=== PATIENT | male | born 1950 | race Caucasian/White ===

== ENCOUNTER 2022-11-24 06:20 | Day surgery (SDC) | payer OTHER ==
[2022-11-24] MEDS: Ringers Lactate 1,000 ML IV ONE (06:40)
[2022-11-24] MEDS ORDERED: LIDOCAINE 1% MPF 5 ML VIAL ONE (08:12)
[2022-11-24] MEDS ORDERED: propofoL 200 MG/20 ML VIAL IV ONE (08:12)
[2022-11-24 08:55] VITALS: TEMP 98.2
[2022-11-24 09:09] VITALS: BP 133/83; O2SAT 97
== END 2022-11-24 09:11 | disposition home or self-care (01) ==
LOC: OR 06:20
PROVIDERS: ATTEND Internal Medicine Gastroenterology
PROC: 0DBK8ZX Excision of Ascending Colon, Via Natural or Artificial Opening Endoscopic, Diagnostic (ICD-10-PCS; principal; 2022-11-24 07:30)
DX: Z86.010 Personal history of colon polyps (principal); Z83.71 Family history of colonic polyps; Z80.0 Family history of malignant neoplasm of digestive organs; K57.30 Diverticulosis of large intestine without perforation or abscess without bleeding; K64.8 Other hemorrhoids; K64.4 Residual hemorrhoidal skin tags; D17.5 Benign lipomatous neoplasm of intra-abdominal organs; K63.5 Polyp of colon; F17.210 Nicotine dependence, cigarettes, uncomplicated
CPT/HCPCS: 88305; 45380; J2704; J2001; J7120

== ENCOUNTER → 2023-10-10 | Emergency (ER) | payer OTHER ==
[~2023-10-10] MED LIST: CODEINE 30MG/APAP 300MG TAB ONE; MORPHINE 2 MG/ML SYR ONE; MORPHINE 4 MG/ML SYR ONE
--- NOTE | 2023-10-10 20:53 | RAD REPORT ---
EXAM DESCRIPTION: RAD - Shoulder Right 2 View - 10/10/2023 8:44 pm CLINICAL HISTORY: fall;Pain COMPARISON: <Comparisons> FINDINGS: Fracture of the proximal right humerus is seen with significant displacement. Examination is limited as positioning is nonanatomic.
--- NOTE | 2023-10-10 21:24 | EDPHYS ---
Physician Documentation [facility] Name: Ej Og Sr Age: 73 yrs Sex: Male : 1950 Arrival Date: 10/10/2023 Time: 19:11 Bed IW1 Private MD: ED Physician Ole Bradshaw HPI: 10/10 19:45 This 73 yrs old Male presents to ER via Ambulatory with complaints of Shoulder Injury, cp Shoulder Pain. 19:45 The patient or guardian complains of decreased range of motion, deformity, an injury, cp pain, that is acute. right shoulder. Context: resulted from a fall, while walking, The patient experiences decreased range of motion, when rotates arm, The patient notes a deformity, an anterior fullness. Onset: The symptoms/episode began/occurred just prior to arrival. Associated signs and symptoms: Pertinent negatives: abdominal pain, chest pain, neck pain, Numbness in right hand and right arm. Treatment prior to arrival includes: no previous treatment. Patient reports slip and fall on ice causing him to strike right shoulder on concrete. Denies hitting head, denies syncope and/or LOC. Historical: - Allergies: 19:22 ANTIHISTAMINES; cm10 - PMHx: 19:22 Enlarged Prostate; cm10 - Immunization history:: Adult Immunizations up to date. - Social history:: Smoking status: Patient reports the use of cigarette tobacco products, smokes 0.75 packs per day. ROS: 19:50 Constitutional: Negative for body aches, chills, fever, poor PO intake, cp 19:50 Eyes: Negative for injury, pain, redness, and discharge, cp 19:50 Neck: Negative for pain with movement, pain at rest, stiffness, 19:50 Cardiovascular: Negative for chest pain, palpitations, 19:50 Respiratory: Negative for cough, shortness of breath, wheezing, 19:50 Abdomen/GI: Negative for abdominal pain, vomiting, diarrhea, constipation, 19:50 Back: Negative for pain at rest, pain with movement, 19:50 MS/extremity: Positive for decreased range of motion, deformity, pain, tenderness, of the right shoulder, Negative for paresthesias, 19:50 Neuro: Negative for altered mental status, headache, loss of consciousness, numbness, syncope, weakness, 19:50 All other systems are negative, Exam: 19:55 Constitutional: The patient appears in no acute distress, alert, awake, cp non-diaphoretic, well developed, well nourished, uncomfortable, 19:55 Head/Face: Normocephalic, atraumatic. cp 19:55 Neck: C-spine: vertebral tenderness, is not appreciated, crepitus, is not appreciated, ROM/movement: is normal, is supple, without pain, no range of motions limitations, 19:55 Chest/axilla: Inspection: normal, Palpation: is normal, no crepitus, no tenderness, 19:55 Cardiovascular: Rate: normal, 19:55 Respiratory: the patient does not display signs of respiratory distress, Respirations: normal, no use of accessory muscles, no retractions, labored breathing, is not present, Breath sounds: are clear throughout, no decreased breath sounds, no stridor, no wheezing, 19:55 Abdomen/GI: Inspection: abdomen appears normal, Palpation: abdomen is soft and non-tender, in all quadrants, 19:55 Back: pain, is absent, ROM is normal, vertebral tenderness, is not appreciated, 19:55 Musculoskeletal/extremity: Extremities: noted in the right shoulder: mild anterior fullness, marked pain, decreased AROM, pain with passive ROM, strong right radial pulse, good wool brusher strength , Vital Signs: 19:24 BP 161 / 89; Pulse 82; Resp 18; Temp 98.3; Pulse Ox 98% on R/A; Weight 80.74 kg; Height cm10 6 ft. 0 in. ; Pain 6/10; 19:24 Body Mass Index 24.14 (80.74 kg, 182.88 cm) cm10 19:24 Pain Scale: Adult cm10 MDM: 19:28 Patient medically screened. cp 21:23 Data reviewed: vital signs, nurses notes, radiologic studies, plain films. cp 21:23 Differential diagnosis: Anterior dislocation with fracture, Anterior dislocation cp without fracture, Posterior dislocation with fracture, Posterior dislocation without fracture, humeral head fracture. I considered the following discharge prescriptions or medication management in the emergency department Medications were administered in the Emergency Department. See MAR. Independent interpretation of the following test(s) in the Emergency Department X-Ray: My interpretation is images of right shoulder show fracture of right humerus below humeral head. Counseling: I had a detailed discussion with the patient and/or guardian regarding the historical points, exam findings, and any diagnostic results supporting the discharge/admit diagnosis, radiology results, the need for outpatient follow up, for definitive care, a orthopedic surgeon, to return to the emergency department if symptoms worsen or persist or if there are any questions or concerns that arise at home. Response to treatment: improved, and as a result, I will discharge patient. 10/10 19:29 Order name: XRAY Shoulder RIGHT 2 view; Complete Time: 21:02 cp 10/10 21:03 Interpretation: Reviewed. cp 10/10 19:32 Order name: Sling; Complete Time: 19:32 cm10 Administered Medications: 21:03 CANCELLED (Physician Discretion): morphine6 mg IM once cp 21:05 Drug: Acetaminophen-Codeine PO (300 mg-30 mg) 2 tabs PO once; RASS on ADMIN: Combtv4, cm10 Very Agttd3, Agttd2, Rstlss1, AlertClm0, Drwsy-1, Lt Sdtn-2, Mod Sdtn-3, Dp Sdtn-4, UnArsble-5 Route: PO; 21:42 Follow up: Response: No adverse reaction cm10 Disposition: 10/11 17:25 Co-signature as Attending Physician, Ole Bradshaw MD I reviewed the patient's care rt provided by the Advanced Practice Provider and agree with the diagnosis and treatment plan. Disposition Summary: 10/10/23 21:24 Discharge Ordered Notes: Location: Home cp Problem: new cp Symptoms: have improved cp Condition: Stable cp Diagnosis - 2-part displaced fracture of surgical neck of right humerus cp Followup: cp - With: Jose Elias Barboza MD - When: 2 - 3 days - Reason: right proximal humerus fracture Discharge Instructions: - Discharge Summary Sheet cp - Humerus Fracture Treated With Immobilization cp Forms: - Medication Reconciliation Form cp - Thank You Letter cp - Antibiotic Education cp - Prescription Opioid Use cp - Patient Portal Instructions cp - Leadership Thank You Letter cp Prescriptions: - acetaminophen-codeine 300-30 mg Oral tablet - take 2 tablet ORAL route every 8 hours as needed for pain; 20 tablet; Refills: cp 0, Product Selection Permitted - Ibuprofen 800 mg Oral Tablet - take 1 tablet ORAL route every 8 hours As needed take with food; 30 tablet; cp Refills: 0, Product Selection Permitted Signatures: Dispatcher MedHoSang Vickers PA PA cp Ole Bradshaw MD MD rt Bernadette Ross RN RN cm10 Corrections: (The following items were deleted from the chart) 10/10 21:03 20:49 morphine IM 6 mg IM once ordered. cp cp
--- NOTE | 2023-10-10 21:24 | ER ---
Nurse's Notes [facility] Name: Ej Og Sr Age: 73 yrs Sex: Male : 1950 Arrival Date: 10/10/2023 Time: 19:11 Bed IW1 Private MD: Diagnosis: 2-part displaced fracture of surgical neck of right humerus Presentation: 10/10 19:24 Chief complaint: Patient states: Right shoulder pain s/p slipping and falling on porch. cm10 Pt denies hitting head, no LOC. Coronavirus screen: Vaccine status: Patient reports being unvaccinated. Client denies travel out of the [place] in the last 14 days. Ebola Screen: Patient denies travel to an Ebola-affected area in the 21 days before illness onset. No symptoms or risks identified at this time. Initial Sepsis Screen: Does the patient meet any 2 criteria? No. Patient's initial sepsis screen is negative. Does the patient have a suspected source of infection? No. Patient's initial sepsis screen is negative. Risk Assessment: Do you want to hurt yourself or someone else? Patient reports no desire to harm self or others. Onset of symptoms was October 10, 2023. 19:24 Method Of Arrival: Ambulatory cm10 19:24 Acuity: LEIGH ANN 4 cm10 Triage Assessment: 19:25 General: Appears in no apparent distress. comfortable, Behavior is calm, cooperative. cm10 Pain: Complains of pain in Right shoulder. EENT: No deficits noted. No signs and/or symptoms were reported regarding the EENT system. Neuro: No deficits noted. Level of Consciousness is awake, alert, Oriented to person, place, time, situation. Respiratory: No deficits noted. Airway is patent Respiratory effort is even, unlabored, Respiratory pattern is regular, symmetrical. GI: No deficits noted. No signs and/or symptoms were reported involving the gastrointestinal system. : No deficits noted. No signs and/or symptoms were reported regarding the genitourinary system. Derm: No deficits noted. No signs and/or symptoms reported regarding the dermatologic system. Skin is intact, Skin is pink, warm \T\ dry. Musculoskeletal: No deficits noted. Reports pain in Right shoulder. Injury Description: Fall. Historical: - Allergies: 19:22 ANTIHISTAMINES; cm10 - PMHx: 19:22 Enlarged Prostate; cm10 - Immunization history:: Adult Immunizations up to date. - Social history:: Smoking status: Patient reports the use of cigarette tobacco products, smokes 0.75 packs per day. Screenin:26 [facility] ED Fall Risk Assessment (Adult) History of falling in the last 3 months, cm10 including since admission Yes- single mechanical fall (1 pt) Confusion or Disorientation No (0 pts) Intoxicated or Sedated No (0 pts) Impaired Gait No (0 pts) Mobility Assist Device Used No (0 pt) Altered Elimination No (0 pt) Score/Fall Risk Level 0 - 2 = Low Risk Oriented to surroundings, Maintained a safe environment, Hourly rounding (assess needs \T\ fall precautionary measures) done. Abuse screen: Denies threats or abuse. Denies injuries from another. Nutritional screening: No deficits noted. Tuberculosis screening: No symptoms or risk factors identified. Vital Signs: 19:24 BP 161 / 89; Pulse 82; Resp 18; Temp 98.3; Pulse Ox 98% on R/A; Weight 80.74 kg; Height cm10 6 ft. 0 in. ; Pain 6/10; 19:24 Body Mass Index 24.14 (80.74 kg, 182.88 cm) cm10 19:24 Pain Scale: Adult cm10 ED Course: 19:18 Patient arrived in ED. gm2 19:25 Triage completed. cm10 19:25 Sang Akhtar PA is PHCP. cp 19:25 Ole Bradshaw MD is Attending Physician. cp 19:26 Arm band placed on Patient placed in waiting room. cm10 19:26 Patient has correct armband on for positive identification. Provided Education on: ER cm10 process and procedures. 19:32 Sling applied to right arm. cm10 20:45 XRAY Shoulder RIGHT 2 view In Process Unspecified. EDMS 21:23 Jose Elias Barboza MD is Referral Physician. cp 21:42 No provider procedures requiring assistance completed. Patient did not have IV access cm10 during this emergency room visit. Administered Medications: 21:03 CANCELLED (Physician Discretion): morphine6 mg IM once cp 21:05 Drug: Acetaminophen-Codeine PO (300 mg-30 mg) 2 tabs PO once; RASS on ADMIN: Combtv4, cm10 Very Agttd3, Agttd2, Rstlss1, AlertClm0, Drwsy-1, Lt Sdtn-2, Mod Sdtn-3, Dp Sdtn-4, UnArsble-5 Route: PO; 21:42 Follow up: Response: No adverse reaction cm10 Medication: 19:26 VIS not applicable for this client. cm10 Outcome: 21:24 Discharge ordered by . cp 21:42 Discharged to home ambulatory, with family, cm10 21:42 Condition: good 21:42 Discharge instructions given to patient, Instructed on discharge instructions, follow up and referral plans. medication usage, Demonstrated understanding of instructions, follow-up care, medications, Prescriptions given X 2, 21:46 Patient left the ED. cm10 Signatures: Dispatcher [employer] EDMS Sang Akhtar PA PA cp Martinez, Clarissa, RN RN cm10 Patsy Ordoñez gm2
[2023-10-10 22:58] VITALS: BP 161/89; TEMP 98.3; O2SAT 98
== END ==
LOC: ER 19:11
DX: S42.221A 2-part displaced fracture of surgical neck of right humerus, initial encounter for closed fracture (principal); Z88.8 Allergy status to other drugs, medicaments and biological substances
CPT/HCPCS: 99283; J2270

== ENCOUNTER → 2023-11-10 | Emergency (ER) | payer OTHER ==
[~2023-11-10] MED LIST changes: -CODEINE 30MG/APAP 300MG TAB ONE; -MORPHINE 2 MG/ML SYR ONE; -MORPHINE 4 MG/ML SYR ONE; +NA CHLORIDE 0.9% 1,000 ML ONE
[2023-11-10 14:53] LABS: Absolute Lymphocytes (CBC) 1.4 K/uL (0.7-4.9); Hematocrit 42.8 % (39.6-49.0); Lymphocytes % 24.8 % (15.3-44.8); MCV 92.7 fL (80-100); MPV 6.7 fL (7.6-11.3); Platelets 253 thou/uL (152-406); RBC Red Blood Cell Count 4.62 M/uL (4.33-5.43)
--- NOTE | 2023-11-10 15:09 | RAD REPORT ---
EXAM DESCRIPTION: RAD - Chest Single View - 11/10/2023 3:00 pm CLINICAL HISTORY: syncope Chest pain. COMPARISON: <Comparisons> FINDINGS: Portable technique limits examination quality. The lungs are emphysematous but grossly clear. The heart is normal in size. No displaced fractures. IMPRESSION: No acute intrathoracic process suspected. Mild COPD.
[2023-11-10 15:14] LABS: Albumin 3.5 g/dL (3.4-5.0); Bilirubin Total 0.6 mg/dL (0.2-1.0); Potassium 3.3 mEq/L (3.5-5.1); Protein, Total 6.5 g/dL (6.4-8.2); Troponin High Sensitivity 7.9 pg/mL (<58.9)
--- NOTE | 2023-11-10 15:47 | ER ---
Nurse's Notes [facility] Name: Ej Og Sr Age: 73 yrs Sex: Male : 1950 Arrival Date: 11/10/2023 Time: 14:24 Bed 17 Private MD: Diagnosis: Syncope Near Presentation: 11/10 14:29 Chief complaint: EMS states: He was getting out of his car became dizzy and fainted. Pt rs5 does not remember anything. Syncopal episode witnessed by son who said he might've hit his head. Coronavirus screen: At this time, the client does not indicate any symptoms associated with coronavirus-19. Ebola Screen: No symptoms or risks identified at this time. Initial Sepsis Screen: Does the patient meet any 2 criteria? No. Patient's initial sepsis screen is negative. Does the patient have a suspected source of infection? No. Patient's initial sepsis screen is negative. Risk Assessment: Do you want to hurt yourself or someone else? Patient reports no desire to harm self or others. Onset of symptoms was November 10, 2023. Care prior to arrival: IV initiated. 20 GA, in the left forearm. 14:29 Method Of Arrival: EMS: [facility] rs5 14:29 Acuity: LEIGH ANN 3 rs5 Historical: - Allergies: 14:32 ANTIHISTAMINES; rs5 14:32 STATINS HMG COA REDUCTASE INHIBITORS; rs5 - PMHx: 14:32 enlarged prostate; rs5 - PSHx: 14:32 None; rs5 - Immunization history:: Adult Immunizations unknown. - Social history:: Smoking status: unknown. Screenin:30 [facility] ED Fall Risk Assessment (Adult) History of falling in the last 3 months, me1 including since admission Yes- single mechanical fall (1 pt) Confusion or Disorientation No (0 pts) Intoxicated or Sedated No (0 pts) Impaired Gait No (0 pts) Mobility Assist Device Used No (0 pt) Altered Elimination No (0 pt) Score/Fall Risk Level 0 - 2 = Low Risk Maintained a safe environment, Provided non-skid footwear, Hourly rounding (assess needs \T\ fall precautionary measures) done. Abuse screen: Denies threats or abuse. Nutritional screening: No deficits noted. Tuberculosis screening: No symptoms or risk factors identified. Assessment: 14:30 General: Appears comfortable, well groomed, well developed, well nourished, Behavior is me1 calm, cooperative, appropriate for age. Pain: Denies pain. Neuro: Level of Consciousness is awake, alert, obeys commands, Oriented to person, place, time, situation, Appropriate for age. Cardiovascular: Capillary refill < 3 seconds Patient's skin is warm and dry. Respiratory: Airway is patent Trachea midline Respiratory effort is even, unlabored, Respiratory pattern is regular, symmetrical. Vital Signs: 14:29 BP 151 / 86; Pulse 77; Resp 18; Pulse Ox 99% on R/A; rs5 14:30 BP 158 / 76; Pulse 61; Resp 16; Pulse Ox 98% on R/A; me1 15:00 BP 163 / 83; Pulse 59; Resp 20; Pulse Ox 100% on R/A; me1 ED Course: 14:29 Patient arrived in ED. rs5 14:30 Patient has correct armband on for positive identification. Bed in low position. Call me1 light in reach. Side rails up X2. Provided Education on: POC. Verbalized understanding. . 14:30 Arm band placed on Patient placed in an exam room. me1 14:30 No provider procedures requiring assistance completed. me1 14:31 Ariel Karimi MD is Attending Physician. ec2 14:32 Triage completed. rs5 15:02 CXR XRAY In Process Unspecified. EDMS 16:11 Ani Fu, RAFA is Primary Nurse. me1 16:15 IV discontinued, intact, bleeding controlled, No redness/swelling at site. Pressure me1 dressing applied. Administered Medications: 14:54 Drug: NS 0.9% IV 1000 ml IV at 1 bolus Per protocol; 1000 mL bolus Route: IV; Rate: 1 rs5 bolus; Site: left forearm; 16:13 Follow up: IV Status: Completed infusion; IV Intake: 1000ml me1 Medication: 14:30 VIS not applicable for this client. me1 Intake: 16:13 IV: 1000ml; Total: 1000ml. me1 Outcome: 15:47 Discharge ordered by . ec2 16:15 Discharged to home ambulatory, with family, me1 16:15 Condition: stable 16:15 Discharge instructions given to patient, family, Instructed on discharge instructions, follow up and referral plans. Demonstrated understanding of instructions, follow-up care, 16:16 Patient left the ED. me1 Signatures: Dispatcher [employer] Evangelista Mora RN RN rs5 Ani Fu RN RN me1 Ariel Karimi MD MD ec2 Corrections: (The following items were deleted from the chart) 16:11 14:29 Chief complaint: EMS states: He was getting out of his car became dizzy and me1 fainted. Pt does not remember anything. Syncopal episode witnessed by son who said he might've hit his head rs5 16:15 14:30 Patient did not have IV access during this emergency room visit. me1 me1
--- NOTE | 2023-11-10 15:48 | EDPHYS ---
Physician Documentation [facility] Name: Ej Og Sr Age: 73 yrs Sex: Male : 1950 Arrival Date: 11/10/2023 Time: 14:24 Bed 17 Private MD: ED Physician Ariel Karimi HPI: 11/10 14:31 This 73 yrs old Male presents to ER via Unassigned with complaints of syncope.ec2 14:31 Patient arrives today for evaluation of a syncopal episode. States that he was getting ec2 off his car, felt lightheaded and subsequently passed out. States that he has had bouts of dizziness which she has been evaluated for in the past by neurology with no acute process identified. Patient reports normal state of health, no vomiting, no diarrhea, no cough or cold symptoms, no fevers or chills. Patient reports normal hydration status.. Historical: - Allergies: 14:32 ANTIHISTAMINES; rs5 14:32 STATINS HMG COA REDUCTASE INHIBITORS; rs5 - PMHx: 14:32 enlarged prostate; rs5 - PSHx: 14:32 None; rs5 - Immunization history:: Adult Immunizations unknown. - Social history:: Smoking status: unknown. ROS: 14:31 Constitutional: as per hpi ec2 Exam: 14:31 Constitutional: GEN: NAD Head: atraumatic Eyes: EOMI Ears: External ears are ec2 normal. CV: regular rate LUNGS: no respiratory distress ABD: non-distended, soft, nontender, no guarding, not rigid SKIN: no evidence of rashes MSK: no evidence of trauma, no C/T/L-spine TTP NEURO: moves all extremities equally, cranial nerves II through XII intact, strength intact all 4 extremities. Vital Signs: 14:29 BP 151 / 86; Pulse 77; Resp 18; Pulse Ox 99% on R/A; rs5 14:30 BP 158 / 76; Pulse 61; Resp 16; Pulse Ox 98% on R/A; me1 15:00 BP 163 / 83; Pulse 59; Resp 20; Pulse Ox 100% on R/A; me1 MDM: 14:31 Patient medically screened. ec2 14:31 Data reviewed: vital signs. ED course: Patient arrives today for evaluation of syncopal ec2 episode. Examination remarkable for well-appearing nontoxic dividual is otherwise in no acute distress. Will obtain lab work, EKG, chest x-ray and reassess patient. Currently considering process such as arrhythmia, electrolyte disturbances, dehydration, anemia.. 15:42 ED course: CBC reassuring, metabolic profile with slight hypokalemia noted, slightly ec2 diminished GFR 74, troponin within normal ranges, chest x-ray with no acute intrathoracic process. On reassessment patient remains well-appearing in no acute distress. Will discharge home. Return precautions given. Low suspicion for PE or dissection, patient otherwise without chest pain to suggest ACS. . 11/10 14:31 Order name: CBC with Diff; Complete Time: 15:41 ec2 11/10 14:31 Order name: CMP; Complete Time: 15:41 ec2 11/10 14:31 Order name: Troponin HS; Complete Time: 15:41 ec2 11/10 14:31 Order name: CXR XRAY; Complete Time: 15:41 ec2 11/10 14:31 Order name: EKG - Nurse/Tech; Complete Time: 14:55 ec2 Administered Medications: 14:54 Drug: NS 0.9% IV 1000 ml IV at 1 bolus Per protocol; 1000 mL bolus Route: IV; Rate: 1 rs5 bolus; Site: left forearm; 16:13 Follow up: IV Status: Completed infusion; IV Intake: 1000ml me1 Disposition Summary: 11/10/23 15:47 Discharge Ordered Notes: Location: Home ec2 Condition: Stable ec2 Diagnosis - Syncope Near ec2 Followup: ec2 - With: Private Physician - When: - Reason: Re-evaluation by your physician Discharge Instructions: - Discharge Summary Sheet ec2 - Syncope ec2 Forms: - Medication Reconciliation Form ec2 - Thank You Letter ec2 - Antibiotic Education ec2 - Prescription Opioid Use ec2 - Patient Portal Instructions ec2 - Leadership Thank You Letter ec2 Signatures: Dispatcher [employer] Evangelista Mora RN RN rs5 Ani Fu RN RN me1 Ariel Karimi MD MD ec2
[2023-11-10 16:32] VITALS: BP 163/83; O2SAT 100
--- NOTE | 2023-11-14 11:07 | EKG ---
Test Date: 2023-11-10 Test Time: 14:50:30 Entertainment Production Professional: DOMINIC MEASUREMENT RESULTS: Intervals: Rate: 60 OK: 178 QRSD: 100 QT: 450 QTc: 450 [place]: P: 29 OK: 178 QRS: 97 T: 37 INTERPRETIVE STATEMENTS: Normal sinus rhythm Nonspecific ST abnormality Abnormal ECG No previous ECG available for comparison Electronically Signed On 11-14-23 11:00:42 LINEN ROOM CUSTODIAN by Rc Salvador
== END ==
LOC: ER 14:24
DX: R55 Syncope and collapse (principal); Z88.8 Allergy status to other drugs, medicaments and biological substances
CPT/HCPCS: 85025; 36415; 84484; 80053; 71045; 96360; 99284; J7030; 93005